=== PATIENT | male | born 1965 | race Caucasian/White ===

== ENCOUNTER 2017-08-03 09:07 | Inpatient (IN) | payer OTHER ==
[~2017-08-03] VITALS: Ht 175.3 cm; Wt 73.3 kg
[~2017-08-03 09:07] MED LIST: CIPRO500 MG PO; HYOSCYAMINE0.125 MG PO; METRONIDAZOLE500 MG PO; NO HOME MEDS
[2017-08-03 09:52] LABS: HEMATOCRIT 48.3 % (38.0-50.0); HEMOGLOBIN 16.7 G/DL (12.5-16.6); MCH 29.9 PG (29.0-34.0); MCHC 34.6 G/DL (30.0-36.0); MCV 86.4 FL (86-99); PLATELET COUNT 369 K/uL (156-360); RBC DIS.WIDTH-CV 11.9 % (11.8-14.6); RED BLOOD COUNT 5.59 M/uL (4.00-5.50); WHITE BLOOD COUNT 13.9 K/uL (4.1-10.2)
[2017-08-03 10:02] LABS: ALBUMIN 4.1 g/dL (3.2-4.8)
[2017-08-03 10:03] LABS: CHLORIDE 100 mEq/L (99-109); POTASSIUM 4.4 mEq/L (3.7-5.4); SODIUM 136 mEq/L (136-147)
[2017-08-03 10:05] LABS: GLUCOSE 116 mg/dL (70-99); TOTAL PROTEIN 7.9 g/dL (6.4-8.3)
[2017-08-03 10:07] LABS: TOTAL BILIRUBIN 0.4 mg/dL (0.0-1.0)
[2017-08-03 10:08] LABS: ALKALINE PHOSPHATASE 126 IU/L (3-129)
[2017-08-03 10:09] LABS: CREATININE 0.9 mg/dL (0.6-1.3); GFR ESTIMATE (CALCULATED) > 59 mL/min/ (58.99-99999)
[2017-08-03 10:10] LABS: AST (GOT) 17 IU/L (2-34); UREA NITROGEN (BUN) 9 mg/dL (9-23)
[2017-08-03 10:11] LABS: ALT (GPT) 26 IU/L (3-49)
[2017-08-03 13:09] LABS: APPEARANCE CLEAR ((CLEAR)); BILIRUBIN NEGATIVE; BLOOD SMALL; COLOR YELLOW ((YELLOW)); GLUCOSE (STRIP) NEGATIVE; KETONES 20; LEUKOCYTES NEGATIVE; NITRITE NEGATIVE; PROTEIN (STRIP) 30; SPECIFIC GRAVITY 1.018 (1.000-1.030); UROBILINOGEN 0.2 MG/DL (0.2-1.0)
[2017-08-03 13:17] LABS: LIPASE 4 U/L (1.0-51.0)
[2017-08-03 13:18] LABS: BACTERIA RARE /HPF; EPITHELIAL CELLS NONE SEEN /HPF; MUCUS 2+ /LPF; RED BLOOD CELLS 0-5 /HPF (0-5); UCUL ADDED? NO; URIC ACID CRYSTALS 1+ /HPF; WHITE BLOOD CELLS 0-5 /HPF (0-5)
[2017-08-03] MEDS ORDERED: TYLENOL EXTRA500 MG PO (17:20)
[2017-08-03] MEDS ORDERED: ADVIL,NUPRIN,M200 MG PO (17:20)
[2017-08-03 19:41] LABS: INTER. NORMALIZED RATIO 1.2
[2017-08-03 19:44] LABS: PTT 28.8 SEC (25-37)
[2017-08-04 07:08] VITALS: BP 136/86
[2017-08-04 09:57] LABS: BASOPHIL (%) 0.4 % (0-1); BASOPHIL COUNT 0.1 K/uL (0-0.1); EOSINOPHIL (%) 0.8 % (0-5); EOSINOPHIL COUNT 0.1 K/uL (0-0.3); HEMATOCRIT 43.5 % (38.0-50.0); HEMOGLOBIN 14.8 G/DL (12.5-16.6); IMMATURE GRANULOCYTE (%) 0.6 % (0.0-0.7); LYMPHOCYTE (%) 11.7 % (15-42); LYMPHOCYTE COUNT 1.4 K/uL (1.0-2.8); MCV 88.2 FL (86-99); MONOCYTE (%) 6.5 % (3-12); MONOCYTE COUNT 0.8 K/uL (0-0.8); NEUTROPHIL COUNT 9.7 K/uL (1.8-6.4); PLATELET COUNT 349 K/uL (156-360); RBC DIS.WIDTH-CV 12.2 % (11.8-14.6); RBC DIS.WIDTH-SD 39.1 % (39-53); RED BLOOD COUNT 4.93 M/uL (4.00-5.50); WHITE BLOOD COUNT 12.1 K/uL (4.1-10.2)
[2017-08-04 10:35] LABS: CHLORIDE 100 MEQ/L (99-109); CREATININE 0.9 MG/DL (0.6-1.3); GFR ESTIMATE (CALCULATED) > 59 mL/min/ (58.99-99999); GLUCOSE 90 mg/dL (70-99); POTASSIUM 4.4 MEQ/L (3.7-5.4); SODIUM 136 MEQ/L (136-147); UREA NITROGEN (BUN) 9 mg/dL (9-23)
[2017-08-04 12:50] VITALS: BP 130/89
[2017-08-04 15:40] VITALS: BP 134/87
[2017-08-05] VITALS: BP 108/64
[2017-08-05 02:51] VITALS: BP 109/67
[2017-08-05 06:12] LABS: BASOPHIL (%) 0.4 % (0-1); BASOPHIL COUNT 0.1 K/uL (0-0.1); EOSINOPHIL (%) 0.8 % (0-5); EOSINOPHIL COUNT 0.1 K/uL (0-0.3); HEMATOCRIT 42.8 % (38.0-50.0); HEMOGLOBIN 14.4 G/DL (12.5-16.6); IMMATURE GRANULOCYTE (%) 0.9 % (0.0-0.7); LYMPHOCYTE (%) 13.6 % (15-42); LYMPHOCYTE COUNT 2.1 K/uL (1.0-2.8); MCH 29.7 PG (29.0-34.0); MCHC 33.6 G/DL (30.0-36.0); MCV 88.2 FL (86-99); MONOCYTE (%) 5.4 % (3-12); MONOCYTE COUNT 0.9 K/uL (0-0.8); NEUTROPHIL (%) 78.9 % (45-76); NEUTROPHIL COUNT 12.4 K/uL (1.8-6.4); PLATELET COUNT 394 K/uL (156-360); RBC DIS.WIDTH-CV 12.1 % (11.8-14.6); RBC DIS.WIDTH-SD 39.8 % (39-53); RED BLOOD COUNT 4.85 M/uL (4.00-5.50); WHITE BLOOD COUNT 15.8 K/uL (4.1-10.2)
[2017-08-05 06:39] LABS: CHLORIDE 99 MEQ/L (99-109); CREATININE 1.2 MG/DL (0.6-1.3); GFR ESTIMATE (CALCULATED) > 59 mL/min/ (58.99-99999); GLUCOSE 90 mg/dL (70-99); POTASSIUM 4.6 MEQ/L (3.7-5.4); SODIUM 136 MEQ/L (136-147); UREA NITROGEN (BUN) 13 mg/dL (9-23)
[2017-08-05 06:45] VITALS: BP 120/73
[2017-08-05 15:03] VITALS: BP 127/84
[2017-08-06 05:40] VITALS: BP 141/97
[2017-08-06 06:37] LABS: CHLORIDE 97 MEQ/L (99-109); CREATININE 0.9 MG/DL (0.6-1.3); GFR ESTIMATE (CALCULATED) > 59 mL/min/ (58.99-99999); GLUCOSE 103 mg/dL (70-99); POTASSIUM 4.7 MEQ/L (3.7-5.4); SODIUM 134 MEQ/L (136-147); UREA NITROGEN (BUN) 12 mg/dL (9-23)
[2017-08-06 07:08] LABS: HEMATOCRIT 45.7 % (38.0-50.0); HEMOGLOBIN 15.5 G/DL (12.5-16.6); MCHC 33.9 G/DL (30.0-36.0); MCV 88.4 FL (86-99); PLATELET COUNT 395 K/uL (156-360); RBC DIS.WIDTH-CV 12.3 % (11.8-14.6); RBC DIS.WIDTH-SD 40.2 % (39-53); RED BLOOD COUNT 5.17 M/uL (4.00-5.50); WHITE BLOOD COUNT 15.1 K/uL (4.1-10.2)
[2017-08-06 09:00] VITALS: BP 128/84
[2017-08-06 16:12] VITALS: BP 122/75
[2017-08-07] VITALS: BP 119/72
[2017-08-07 06:19] LABS: HEMATOCRIT 40.4 % (38.0-50.0); HEMOGLOBIN 13.9 G/DL (12.5-16.6); MCH 30.4 PG (29.0-34.0); MCHC 34.4 G/DL (30.0-36.0); MCV 88.4 FL (86-99); PLATELET COUNT 426 K/uL (156-360); RBC DIS.WIDTH-CV 12.4 % (11.8-14.6); RBC DIS.WIDTH-SD 39.9 % (39-53); RED BLOOD COUNT 4.57 M/uL (4.00-5.50); WHITE BLOOD COUNT 11.3 K/uL (4.1-10.2)
[2017-08-07 06:34] LABS: CHLORIDE 97 MEQ/L (99-109); GFR ESTIMATE (CALCULATED) > 59 mL/min/ (58.99-99999); GLUCOSE 91 mg/dL (70-99); SODIUM 133 MEQ/L (136-147); UREA NITROGEN (BUN) 12 mg/dL (9-23)
[2017-08-07 07:25] VITALS: BP 112/76
[2017-08-07 15:30] VITALS: BP 119/81
[2017-08-07 23:13] VITALS: BP 116/74
[2017-08-08 06:48] LABS: HEMATOCRIT 39.8 % (38.0-50.0); HEMOGLOBIN 13.4 G/DL (12.5-16.6); MCH 29.4 PG (29.0-34.0); MCHC 33.7 G/DL (30.0-36.0); MCV 87.3 FL (86-99); PLATELET COUNT 445 K/uL (156-360); RBC DIS.WIDTH-CV 12.1 % (11.8-14.6); RBC DIS.WIDTH-SD 39.3 % (39-53); RED BLOOD COUNT 4.56 M/uL (4.00-5.50); WHITE BLOOD COUNT 9.1 K/uL (4.1-10.2)
[2017-08-08 08:27] VITALS: BP 115/78
[2017-08-08 15:57] VITALS: BP 114/72
[2017-08-08 23:21] VITALS: BP 117/77
[2017-08-09 06:33] LABS: BASOPHIL (%) 0.7 % (0-1); BASOPHIL COUNT 0.1 K/uL (0-0.1); EOSINOPHIL (%) 5.1 % (0-5); EOSINOPHIL COUNT 0.5 K/uL (0-0.3); HEMATOCRIT 41.2 % (38.0-50.0); IMMATURE GRANULOCYTE (%) 1.9 % (0.0-0.7); LYMPHOCYTE (%) 19.7 % (15-42); LYMPHOCYTE COUNT 1.9 K/uL (1.0-2.8); MCH 30.1 PG (29.0-34.0); MCV 88.6 FL (86-99); MONOCYTE (%) 8.8 % (3-12); MONOCYTE COUNT 0.8 K/uL (0-0.8); NEUTROPHIL (%) 63.8 % (45-76); PLATELET COUNT 479 K/uL (156-360); RBC DIS.WIDTH-CV 12.3 % (11.8-14.6); RBC DIS.WIDTH-SD 40.4 % (39-53); RED BLOOD COUNT 4.65 M/uL (4.00-5.50); WHITE BLOOD COUNT 9.5 K/uL (4.1-10.2)
[2017-08-09 06:35] LABS: CHLORIDE 98 MEQ/L (99-109); CREATININE 0.9 MG/DL (0.6-1.3); GFR ESTIMATE (CALCULATED) > 59 mL/min/ (58.99-99999); GLUCOSE 92 mg/dL (70-99); POTASSIUM 4.9 MEQ/L (3.7-5.4); SODIUM 135 MEQ/L (136-147); UREA NITROGEN (BUN) 10 mg/dL (9-23)
[2017-08-09 08:15] VITALS: BP 119/78
[2017-08-09] MEDS ORDERED: FLAGYL500 MG PO (08:39)
[2017-08-09] MEDS ORDERED: HYDROCODON-ACE1 EAC9 PO (08:39)
[2017-08-09] MEDS ORDERED: STOOL SOFTENER100 MG PO (08:39)
[2017-08-09] MEDS ORDERED: CIPRO500 MG PO (08:39)
== END 2017-08-09 13:05 | disposition home health service (06) | DRG 392 ==
LOC: EME 09:07 → 5EAST 19:13 → EDOF 19:13 → ENRESERV 19:25 → 5EAST 21:40
PROVIDERS: Physician Assistant; Surgery
DX: K57.20 Diverticulitis of large intestine with perforation and abscess without bleeding (principal); F17.200 Nicotine dependence, unspecified, uncomplicated
CPT/HCPCS: 49406; 74177; 80048; 80053; 81003; 83690; 85025; 85027; 85610; 85730; 87040; 87070; 87075; 87076; 87185; 87205; 99281; 99285; C1769; J0744; J1650; J2270; J2405; J2543; J3010; J3480; J7030; J7040; J7050; S0028; S0030

== ENCOUNTER → 2017-09-01 | Outpatient (CLI) | payer SELFPAY ==
[~2017-09-01] MED LIST changes: +ADVIL,NUPRIN,M200 MG PO; +FLAGYL500 MG PO; +HYDROCODON-ACE1 EAC9 PO; +STOOL SOFTENER100 MG PO; +TYLENOL EXTRA500 MG PO
== END | disposition home or self-care (01) ==
LOC: CDC 09:08
DX: Z01.810 Encounter for preprocedural cardiovascular examination (principal); K57.32 Diverticulitis of large intestine without perforation or abscess without bleeding
CPT/HCPCS: 93000

== ENCOUNTER 2017-09-05 22:20 | Inpatient (IN) | payer OTHER ==
[~2017-09-05] VITALS: Ht 175.3 cm; Wt 81.5 kg
[2017-09-06 07:51] VITALS: BP 113/70
[2017-09-06 14:30] VITALS: BP 138/75
[2017-09-06 20:30] VITALS: BP 123/71
[2017-09-06 23:58] VITALS: BP 118/68
[2017-09-07 03:52] VITALS: BP 119/64
[2017-09-07 07:10] LABS: CHLORIDE 99 MEQ/L (99-109); GFR ESTIMATE (CALCULATED) > 59 mL/min/ (58.99-99999); GLUCOSE 127 mg/dL (70-99); MAGNESIUM 1.8 mg/dl (1.3-2.7); PHOSPHORUS 3.7 mg/dL (2.5-4.9); POTASSIUM 4.4 MEQ/L (3.7-5.4); SODIUM 135 MEQ/L (136-147); UREA NITROGEN (BUN) 8 mg/dL (9-23)
[2017-09-07 07:15] VITALS: BP 125/79
[2017-09-07 07:15] LABS: HEMATOCRIT 40.4 % (38.0-50.0); MCH 29.6 PG (29.0-34.0); MCHC 34.2 G/DL (30.0-36.0); MCV 86.7 FL (86-99); RBC DIS.WIDTH-CV 13.2 % (11.8-14.6); RBC DIS.WIDTH-SD 41.1 % (39-53); RED BLOOD COUNT 4.66 M/uL (4.00-5.50); WHITE BLOOD COUNT 11.5 K/uL (4.1-10.2)
[2017-09-07 07:21] LABS: HEMOGLOBIN 13.8 G/DL (12.5-16.6)
[2017-09-07 07:30] LABS: PLAT.SUFFICIENCY ADEQUATE; PLATELET COUNT 253 K/uL (156-360)
[2017-09-07 11:00] VITALS: BP 122/74
[2017-09-07 15:45] VITALS: BP 149/88
[2017-09-07 20:22] VITALS: BP 127/69
[2017-09-08] VITALS (7 sets, daily range): BP systolic 118–139; BP diastolic 65–82
[2017-09-08 10:06] LABS: HEMATOCRIT 39.9 % (38.0-50.0); HEMOGLOBIN 13.6 G/DL (12.5-16.6); MCHC 34.1 G/DL (30.0-36.0); MCV 87.9 FL (86-99); PLATELET COUNT 236 K/uL (156-360); RBC DIS.WIDTH-CV 13.2 % (11.8-14.6); RBC DIS.WIDTH-SD 42.5 % (39-53); RED BLOOD COUNT 4.54 M/uL (4.00-5.50); WHITE BLOOD COUNT 11.8 K/uL (4.1-10.2)
[2017-09-09 04:05] VITALS: BP 135/87
[2017-09-09 06:49] LABS: HEMATOCRIT 37.4 % (38.0-50.0); HEMOGLOBIN 12.6 G/DL (12.5-16.6); MCH 29.6 PG (29.0-34.0); MCHC 33.7 G/DL (30.0-36.0); PLATELET COUNT 220 K/uL (156-360); RBC DIS.WIDTH-CV 13.3 % (11.8-14.6); RBC DIS.WIDTH-SD 42.5 % (39-53); RED BLOOD COUNT 4.25 M/uL (4.00-5.50); WHITE BLOOD COUNT 8.1 K/uL (4.1-10.2)
[2017-09-09 07:20] LABS: CHLORIDE 101 MEQ/L (99-109); CREATININE 0.9 MG/DL (0.6-1.3); GFR ESTIMATE (CALCULATED) > 59 mL/min/ (58.99-99999); GLUCOSE 121 mg/dL (70-99); SODIUM 136 MEQ/L (136-147); UREA NITROGEN (BUN) 4 mg/dL (9-23)
[2017-09-09 07:44] VITALS: BP 118/79
[2017-09-09 12:00] VITALS: BP 122/83
[2017-09-09 16:27] VITALS: BP 138/92
[2017-09-09 18:48] VITALS: BP 142/86
[2017-09-09 23:06] VITALS: BP 139/87
[2017-09-10 03:55] VITALS: BP 139/92
[2017-09-10 07:56] VITALS: BP 136/83
[2017-09-10 09:39] LABS: HEMOGLOBIN 13.1 G/DL (12.5-16.6); MCH 29.4 PG (29.0-34.0); MCHC 33.6 G/DL (30.0-36.0); MCV 87.6 FL (86-99); PLATELET COUNT 268 K/uL (156-360); RBC DIS.WIDTH-CV 13.1 % (11.8-14.6); RBC DIS.WIDTH-SD 42.3 % (39-53); RED BLOOD COUNT 4.45 M/uL (4.00-5.50); WHITE BLOOD COUNT 7.6 K/uL (4.1-10.2)
[2017-09-10 09:57] LABS: CHLORIDE 101 MEQ/L (99-109); POTASSIUM 4.1 MEQ/L (3.7-5.4); SODIUM 135 MEQ/L (136-147)
[2017-09-10 10:02] LABS: CREATININE 0.8 MG/DL (0.6-1.3); GFR ESTIMATE (CALCULATED) > 59 mL/min/ (58.99-99999); GLUCOSE 111 mg/dL (70-99); UREA NITROGEN (BUN) 6 mg/dL (9-23)
[2017-09-10 12:04] VITALS: BP 126/84
[2017-09-10 16:17] VITALS: BP 128/81
[2017-09-10 23:46] VITALS: BP 125/79
[2017-09-11] VITALS: BP 125/79
[2017-09-11 06:37] LABS: HEMATOCRIT 40.4 % (38.0-50.0); HEMOGLOBIN 13.6 G/DL (12.5-16.6); MCH 29.1 PG (29.0-34.0); MCHC 33.7 G/DL (30.0-36.0); MCV 86.3 FL (86-99); PLATELET COUNT 305 K/uL (156-360); RBC DIS.WIDTH-SD 40.7 % (39-53); RED BLOOD COUNT 4.68 M/uL (4.00-5.50); WHITE BLOOD COUNT 9.9 K/uL (4.1-10.2)
[2017-09-11 06:46] VITALS: BP 118/82
[2017-09-11 07:08] LABS: CHLORIDE 97 MEQ/L (99-109); GFR ESTIMATE (CALCULATED) > 59 mL/min/ (58.99-99999); GLUCOSE 96 mg/dL (70-99); POTASSIUM 4.9 MEQ/L (3.7-5.4); SODIUM 134 MEQ/L (136-147); UREA NITROGEN (BUN) 8 mg/dL (9-23)
[2017-09-11 15:04] VITALS: BP 120/85
[2017-09-12 00:22] VITALS: BP 127/83
[2017-09-12 07:29] VITALS: BP 110/81
[2017-09-12] MEDS ORDERED: ENDOCET 5-3251 EACH PO (11:12)
== END 2017-09-12 13:30 | disposition home or self-care (01) | DRG 330 ==
LOC: ENRESERV 22:20 → 5EAST 09-06 07:10 → 2SOUTH 09-06 07:10 → ENRESERV 09-06 11:51 → 2SOUTH 09-06 12:17 → 5EAST 09-06 14:21 → ENPENDDIS 09-12 → 5EAST 09-12 13:30
PROVIDERS: Physician Assistant Surgical; Surgery
DX: K57.20 Diverticulitis of large intestine with perforation and abscess without bleeding (principal); M54.5 Low back pain; F17.200 Nicotine dependence, unspecified, uncomplicated; Z80.0 Family history of malignant neoplasm of digestive organs
CPT/HCPCS: 80048; 82948; 83735; 84100; 85027; 88302; 88307; 94760; 94799; 97530 GO; J0131; J0330; J1100; J1170; J1650; J2250; J2405; J2710; J2765; J3010; J7120; S0028; S0074

== ENCOUNTER 2017-12-14 20:32 | Emergency (ER) | payer OTHER ==
[~2017-12-14] VITALS: Ht 177.8 cm; Wt 79.8 kg
[~2017-12-14 20:32] MED LIST changes: +ENDOCET 5-3251 EACH PO
[2017-12-14 21:45] LABS: APPEARANCE CLEAR ((CLEAR)); BILIRUBIN NEGATIVE; BLOOD NEGATIVE; COLOR STRAW ((YELLOW)); GLUCOSE (STRIP) NEGATIVE; KETONES NEGATIVE; LEUKOCYTES NEGATIVE; NITRITE NEGATIVE; PROTEIN (STRIP) NEGATIVE; SPECIFIC GRAVITY 1.006 (1.000-1.030); UCUL ADDED? NO; UROBILINOGEN 0.2 MG/DL (0.2-1.0)
[2017-12-14 21:50] LABS: HEMATOCRIT 46.5 % (38.0-50.0); HEMOGLOBIN 16.3 G/DL (12.5-16.6); MCH 30.4 PG (29.0-34.0); MCHC 35.1 G/DL (30.0-36.0); MCV 86.6 FL (86-99); PLATELET COUNT 253 K/uL (156-360); RBC DIS.WIDTH-CV 13.9 % (11.8-14.6); RED BLOOD COUNT 5.37 M/uL (4.00-5.50); WHITE BLOOD COUNT 12.3 K/uL (4.1-10.2)
[2017-12-14 22:03] LABS: ALBUMIN 4.3 g/dL (3.2-4.8); CHLORIDE 106 mEq/L (99-109); POTASSIUM 4.4 mEq/L (3.7-5.4); SODIUM 137 mEq/L (136-147)
[2017-12-14 22:06] LABS: GLUCOSE 102 mg/dL (70-99); TOTAL PROTEIN 8.1 g/dL (6.4-8.3)
[2017-12-14 22:08] LABS: TOTAL BILIRUBIN 0.4 mg/dL (0.0-1.0)
[2017-12-14 22:09] LABS: ALKALINE PHOSPHATASE 95 IU/L (3-129); GFR ESTIMATE (CALCULATED) > 59 mL/min/ (58.99-99999)
[2017-12-14 22:10] LABS: UREA NITROGEN (BUN) 12 mg/dL (9-23)
[2017-12-14 22:11] LABS: AST (GOT) 29 IU/L (2-34)
[2017-12-14 22:12] LABS: ALT (GPT) 49 IU/L (3-49)
[2017-12-14] MEDS ORDERED: CIPRO500 MG PO (23:40)
[2017-12-14] MEDS ORDERED: FLAGYL500 MG PO (23:40)
[2017-12-15 00:46] VITALS: BP 131/84
== END 2017-12-15 00:50 | disposition home or self-care (01) ==
LOC: EME 20:32
PROVIDERS: Physician Assistant
DX: K57.32 Diverticulitis of large intestine without perforation or abscess without bleeding (principal); Z90.49 Acquired absence of other specified parts of digestive tract; Z87.891 Personal history of nicotine dependence
CPT/HCPCS: 74177; 80053; 81003; 85027; 99281; 99284; J1885; J7030